=== PATIENT | female | born 1970 | race Caucasian/White ===

== ENCOUNTER → 2017-11-22 | Outpatient (CLI) | payer OTHER ==
--- NOTE | 2017-11-23 13:47 | MM ---
Reason for exam: screening (asymptomatic). Last mammogram was performed 1 year and 5 months ago. History: Implants in both breasts, 1995. Physical Findings: A clinical breast exam by your physician is recommended on an annual basis and results should be correlated with mammographic findings. MG Screening Mammo Implant/CAD Bilateral CC, MLO, and ID view(s) were taken. Prior study comparison: June 29, 2016, bilateral MG screening mammo implant/CAD. The breast tissue is heterogeneously dense. This may lower the sensitivity of mammography. Finding: There are typically benign overall stable punctate calcifications. No suspicious abnormality. No significant changes in finding since June 29, 2016. ASSESSMENT: Benign, BI-RAD 2 RECOMMENDATION: Routine screening mammogram of both breasts in 1 year.
== END | disposition home or self-care (01) ==
LOC: RADMAMWWP 12:57
PROVIDERS: ATTEND Family Medicine
DX: Z12.31 Encounter for screening mammogram for malignant neoplasm of breast (principal)
CPT/HCPCS: 77067

== ENCOUNTER → 2020-12-19 | Outpatient (CLI) | payer OTHER ==
--- NOTE | 2020-12-20 14:51 | MM ---
Reason for exam: screening (asymptomatic). Last mammogram was performed 3 years and 1 month ago. History: Implants in both breasts, 1995. Physical Findings: A clinical breast exam by your physician is recommended on an annual basis and results should be correlated with mammographic findings. MG 3D Screen Mammo Imp/Cad Bilateral CC and MLO view(s) were taken. Prior study comparison: November 22, 2017, bilateral MG screening mammo implant/CAD. June 29, 2016, bilateral MG screening mammo implant/CAD. Finding: Architectural distortion located 4-5cm from the nipple in the 12 o'clock position of the left breast. New finding since November 22, 2017 and June 29, 2016. ASSESSMENT: Incomplete: need additional imaging evaluation, BI-RAD 0 RECOMMENDATION: Ultrasound of the left breast. [facility] will attempt to contact patient to return for ultrasound.
== END | disposition home or self-care (01) ==
LOC: RADMAMWWP 13:29
PROVIDERS: ATTEND Family Medicine
DX: Z12.31 Encounter for screening mammogram for malignant neoplasm of breast (principal)
CPT/HCPCS: 77063; 77067

== ENCOUNTER → 2020-12-30 | Outpatient (CLI) | payer OTHER ==
--- NOTE | 2020-12-31 09:14 | USB ---
Reason for exam: additional evaluation requested from abnormal screening. History: Implants in both breasts, 1995. Physical Findings: Nurse Summary: 2cm firm nodule at 2-3 o'clock (nurse dw). US Breast Limited BILAT Technologist: Nathalie Sykes Left limited breast ultrasound including focal area of concern, retroareolar and axilla demonstrates a 0.6 x 1.0 x 0.5cm hypoechoic lesion at 11 o'clock. Suspicious, appears to correspond to mammogram. Right complete breast ultrasound includes all four quadrants, the retroareolar region and axilla. Finding demonstrates lump at 3 o'clock, likely fold breast implant, no cyst or mass. These results were verbally communicated with the patient and result sheet given to the patient on 12/30/20. ASSESSMENT: Suspicious, BI-RAD 4 RECOMMENDATION: Ultrasound core biopsy of the left breast. Called Dr. Lee's office with mammographic findings and has scheduled an appointment for the patient for 01/29/21 at 9:[address] Lerma. Biopsy scheduled for 01/23/21 at 9:30. PRELIMINARY REPORT CALLED AND FAXED TO DR. LERMA ON 12/31/20.
== END | disposition home or self-care (01) ==
LOC: RADUSWWP 13:03
PROVIDERS: ATTEND Family Medicine
DX: N64.59 Other signs and symptoms in breast (principal)

== ENCOUNTER → 2021-01-23 | Day surgery (SDC) | payer OTHER ==
[2021-01-23 09:37] VITALS: RESP 16
[2021-01-23 10:57] VITALS: BP 127/86; PULSE 76; TEMP 98
--- NOTE | 2021-01-23 13:00 | USB ---
EXAMINATION TYPE: US biopsy breast VAD LT DATE OF EXAM: 01/23/2021 CLINICAL HISTORY: R92.8 abnormal mammogram. TECHNIQUE: Ultrasound guided core biopsy of left breast. COMPARISON: 12/30/2020, 12/19/2020 FINDINGS: The procedure of ultrasound guided core biopsy was explained to the patient. Benefits, alternatives, and risks were discussed. An informed consent was then obtained. The patient was placed in supine positioning for imaging and for the procedure. The overlying skin was prepped and draped in usual sterile fashion. Lidocaine buffered with bicarbonate was used as anesthetic into the skin and subcutaneous tissue up to area of concern in the left breast. A alber was made with surgical scalpel. Under ultrasound guidance, a 12-gauge vacuum assisted biopsy gun device was used to obtain 5 core samples. Following this, a biopsy clip was left in lesion. The patient tolerated the procedure well without any immediate complication. The patient was kept in the radiology department for short stay after the procedure and then discharged home in stable condition. IMPRESSION: Successful, uncomplicated ultrasound guided core biopsy of area of concern in the left breast, full pathology results to follow. Pathology Results: Benign LEFT BREAST, 11:00 POSITION, CORE BIOPSY: Hyalinized and sclerotic hypocellular breast tissue with mild periductal chronic inflammation. Recommendation Surgical consult of the left breast. FERNANDA
--- NOTE | 2021-01-23 14:46 | MM ---
Reason for exam: additional evaluation requested from abnormal screening. Last mammogram was performed 1 month ago. History: Implants in both breasts, 1995. MG Diagnostic Mammo LT Wo CAD CC and LM view(s) were taken of the left breast. Prior study comparison: December 19, 2020, bilateral MG 3d screen mammo imp/cad. November 22, 2017, bilateral MG screening mammo implant/CAD. ASSESSMENT: Post procedure mammogram for marker placement RECOMMENDATION: Ultrasound of the left breast in 6 months. PENDING PATHOLOGY RESULTS.
== END ==
LOC: RADUSWWP 09:12
PROVIDERS: ATTEND Student in an Organized Health Care Education/Training Program
DX: N61.0 Mastitis without abscess (principal)
CPT/HCPCS: 88305; 77065; 19083; A4648; J2001

== ENCOUNTER → 2022-05-01 | Outpatient (CLI) | payer OTHER ==
--- NOTE | 2022-05-01 13:35 | MM ---
Reason for Exam: Follow-up at short interval from prior study. Last mammogram was performed 1 year(s) and 4 month(s) ago. Patient History: Menarche at age 13. 01/23/2021, Benign Core Biopsy on the left side. 1995, Bilateral Implants. Last menstrual period: 04/23/2022 Risk Values: Essence 5 year model risk: 0.8%. NCI Lifetime model risk: 6.7%. Prior Study Comparison: 06/29/2016 Bilateral Screening Mammogram, [facility]. 11/22/2017 Bilateral Screening Mammogram, [facility]. 12/19/2020 Bilateral Screening Mammogram, [facility]. 12/30/2020 Bilateral Diagnostic Ultrasound, [facility]. 01/23/2021 Left Diagnostic Mammogram, [facility]. Tissue Density: The breast tissue is heterogeneously dense. This may lower the sensitivity of mammography. Findings: Analyzed By CAD. There is again aqueduct is distortion about the lower centimeters from the nipple at 12:00 position in the left breast with biopsy clip in place. Biopsy demonstrated benign pathology which was discordant from previous ultrasound findings. This is not significantly changed from prior exam. No new suspicious masses or worrisome cluster microcalcifications. Bilateral saline implant rupture. Overall Assessment: Incomplete: need additional imaging evaluation, BI-RAD 0 Management: Diagnostic Breast Ultrasound of the left breast. A clinical breast exam by your physician is recommended on an annual basis and results should be correlated with mammographic findings. This exam should not preclude additional follow-up of suspicious palpable abnormalities. Results were given to the patient verbally at the time of exam. Electronically signed and approved by: Ernesto Foy D.O.
--- NOTE | 2022-05-01 14:23 | USB ---
Reason for Exam: Follow-up at short interval from prior study. Patient History: Menarche at age 13. 01/23/2021, Benign Core Biopsy on the left side. 1995, Bilateral Implants. Risk Values: Essence 5 year model risk: 0.8%. NCI Lifetime model risk: 6.7%. Technique: Method: Targeted. Prior Study Comparison: 11/22/2017 Bilateral Screening Mammogram, [facility]. 12/19/2020 Bilateral Screening Mammogram, [facility]. 01/23/2021 Left Diagnostic Mammogram, [facility]. Findings: The upper inner quadrant of the left breast and the retroareolar of the left breast were scanned. Limited ultrasound of the left breast at site of previous biopsy was performed from 9:00 to 2:00. The retroareolar region was evaluated. The axilla was not evaluated. Stable to marginally increase in size of 1.1 x 1.0 x 0.8 cm hypoechoic lesion at 11:00 2 cm from the nipple with spiculated margins and biopsy clip in place. Previous biopsy results demonstrated hyalinizing sclerotic hypercellular breast tissue with mild periductal chronic inflammation which is discordant with imaging findings. Overall Assessment: Suspicious, BI-RAD 4 Management: Surgical Consultation of the left breast. A clinical breast exam by your physician is recommended on an annual basis and results should be correlated with mammographic findings. Electronically signed and approved by: Ernesto Foy D.O.
== END | disposition home or self-care (01) ==
LOC: RADMAMWWP 12:48
PROVIDERS: ATTEND Family Medicine
DX: R92.8 Other abnormal and inconclusive findings on diagnostic imaging of breast (principal)
CPT/HCPCS: 77066; 76642; G0279; 77062

== ENCOUNTER → 2022-09-11 | Outpatient (CLI) | payer OTHER ==
[2022-09-11 14:48] VITALS: BP 110/70; PULSE 85; RESP 17; TEMP 98
--- NOTE | 2022-09-11 15:14 | P.GSHP ---
History of Present Illness H&P Date: 09/11/22 Chief Complaint: Discordant left breast ultrasound core biopsy Adele is a 52-year-old female seen in consultation for Dr. Lee who underwent a bilateral mammogram on . This revealed heterogeneously dense breast tissue. Was personally reviewed and additionally it was noted that she had implants in place which appeared to be deflated. She then had an ultrasound of the left breast which revealed a 1.1 x 0.8 cm hypoechoic lesion at the 11 o'clock position with spiculated margins. A biopsy clip was in place. It was felt that the biopsy results were discordant as this was a suspicious lesion in that needle localization and excision should be performed. She has not had any studies done since April. She states she can feel a valve in the right breast as she has had prior implants in both of the implants have ruptured. This mammogram was a routine mammogram. She had bilateral breast reduction followed by breast implant placement. The implants were placed approximately 30 years ago. The are saline implants. Caffiene: 1 cup every other day nicotine: several times a week chocolate: occasional BCP: none Hormonal History: menarche: 15 , breast fed: yes, age at : 19 periomenopausal at this time, LMP 1 month ago hormones: none Family History: brother: skin cancer ? type Surgical history: Bilateral breast reduction followed by breast implant placement appy Medical History: none Social History: nicotine: Several times a week Alcohol: weekends, 5 drinks; wine or vodka drugs: none - Constitutional Constitutional: Reports sweats - EENT Eyes: left blurred vision (light flashing in her left eye), denies pain Ears: deny: decreased hearing, tinnitus Ears, nose, mouth and throat: Reports headache - Breasts Breasts: bilateral: as per HPI - Cardiovascular Cardiovascular: Denies chest pain, Denies shortness of breath - Respiratory Respiratory: Denies cough, Denies 7 - Gastrointestinal Gastrointestinal: Reports constipation, Denies abdominal pain, Denies diarrhea, Denies nausea, Denies vomiting - Genitourinary (Female) Genitourinary: Denies dysuria, Denies hematuria - Menstruation Menstruation: Reports cycle variable - Musculoskeletal Musculoskeletal: Denies myalgias - Integumentary Integumentary: Denies pruritus, Denies rash - Neurological Neurological: Denies numbness, Denies weakness - Psychiatric Psychiatric: Reports depression, Denies anxiety - Endocrine Endocrine: Denies fatigue, Denies weight change - Hematologic/Lymphatic Comment: none - Allergic/Immunologic Allergic/Immunologic: Reports seasonal allergies Past Medical History Past Medical History: No Reported History History of Any Multi-Drug Resistant Organisms: None Reported Past Surgical History: Appendectomy, Breast Surgery Additional Past Surgical History / Comment(s): breast reduction, breast augmentation. Repair of fractured nose as child Past Anesthesia/Blood Transfusion Reactions: No Reported Reaction Past Psychological History: No Psychological Hx Reported Smoking Status: Current every day smoker Past Alcohol Use History: Occasional Past Drug Use History: None Reported Medications and Allergies Home Medications Medication Instructions Recorded Confirmed Type No Known Home Medications 09/11/22 09/11/22 History Allergies Allergy/AdvReac Type Severity Reaction Status Date / Time No Known Allergies Allergy Verified 09/11/22 14:44 Surgical - Exam Vital Signs Temp Pulse Resp BP Pulse Ox 98 F 85 17 110/70 98 09/11/22 14:45 09/11/22 14:45 09/11/22 14:45 09/11/22 14:45 09/11/22 14:45 BMKI: 19 - General moderate distress - Eyes normal ocular movement - ENT no hearing loss - Neck trachea midline - Respiratory normal respiratory effort, clear to auscultation - Cardiovascular Rhythm: regular Heart Sounds: normal: S1, S2 - Abdomen Abdomen: soft, non tender, no guarding, no rigid, no rebound - Integumentary normal turgor - Neurologic no disoriented, no combative - Musculoskeletal normal gait, normal posture - Psychiatric oriented to time, oriented to person, oriented to place, speech is normal, memory intact Breast Exam: BRA: 36D Inspection: Well-healed scars from prior reduction mammoplasty, patient has a visible right breast implant change in the upper medial aspect of the breast Palpation: Right breast: Multiple positional exam implant is palpable in the upper medial aspect of the breast, fibrocystic changes, otherwise no dominant masses or nodules of concern Right axilla: No adenopathy of concern Left breast: Multi-positional exam fibrocystic changes no discrete dominant masses or nodules of concern is harder to feel the deflated implant on that side Left axilla: No adenopathy of concern Results Mammogram and ultrasound personally reviewed Assessment and Plan Assessment: Impression: Discordant left breast core biopsy Bilateral deflated breast implants causing breast pain Plan: Needle localization at excisional lumpectomy of discordant lesion in the left breast Bilateral removal of deflated implants/removal of capsule of implants Cc: Dr. Lee
== END ==
LOC: WWCWWP 14:29
PROVIDERS: ATTEND Surgery
DX: N63.20 Unspecified lump in the left breast, unspecified quadrant (principal); F17.200 Nicotine dependence, unspecified, uncomplicated

== ENCOUNTER → 2022-10-27 | Day surgery (SDC) | payer OTHER ==
[~2022-10-27] MED LIST: HEPARIN SODIUM,PORCINE/PF 5,000 UNIT/0.5 ML SYRINGE SQ PRN; HYDROmorphone 0.5 MG/0.5 ML SYRINGE IVP PRN; LACTATED RINGERS 1,000 ML IV SCH; ONDANSETRON 4 MG/2 ML VIAL IVP ONE; Pre Op ABX Message 1 EACH MISC MISCELLANE ONE; fentaNYL (PF) 50 MCG/ML 2 ML AMP IV PRN
--- NOTE | 2022-10-27 10:47 | P.PN ---
Progress Note - Text Progress Note Date: 10/27/22 The patient came late to her appointment and her surgical case was canceled. She still requires needle localization excision of lesion of concern in the left breast. She would also like to have the bilateral ruptured implants removed. I have talked to Dr. Gutierrez and he has agreed to do a co-procedure in which I will remove the lesion of concern in the breast and he will removed both implants. We have talked to his office and this is scheduled for December 15. The patient is also aware. She is going to call Dr. Gutierrez's office and schedule an appointment with him. Surgery today was canceled because she came late, and other cases were moved into her appointment OR time.
== END ==
LOC: OR 08:23
PROVIDERS: ATTEND Surgery
DX: Z53.9 Procedure and treatment not carried out, unspecified reason (principal)

== ENCOUNTER → 2022-11-27 | Outpatient (CLI) | payer OTHER ==
[2022-11-27 08:49] VITALS: BP 116/83; PULSE 104; RESP 17; TEMP 97.9
--- NOTE | 2022-11-27 08:53 | P.PN ---
Subjective Progress Note Date: 11/27/22 Principal diagnosis: Discordant mass left breast/bilateral breast implants deflated Subjective Progress Note Date: 10/15/22 Principal diagnosis: Discordant mass left breast/bilateral breast implants deflated Chief Complaint: Discordant left breast ultrasound core biopsy Adele is a 52-year-old female seen in consultation for Dr. Lee who underwent a bilateral mammogram on . This revealed heterogeneously dense breast tissue. Was personally reviewed and additionally it was noted that she had implants in place which appeared to be deflated. She then had an ultrasound of the left breast which revealed a 1.1 x 0.8 cm hypoechoic lesion at the 11 o'clock position with spiculated margins. A biopsy clip was in place. It was felt that the biopsy results were discordant as this was a suspicious lesion in that needle localization and excision should be performed. She has not had any studies done since April. She states she can feel a valve in the right [address] as she has had prior implants and both of the implants have ruptured. This mammogram was a routine mammogram. She had bilateral breast reduction followed by breast implant placement. The implants were placed approximately 30 years ago. The are saline implants. They were textured implants. The patient had repeat left breast mammogram and ultrasound on 2922. The area of concern which has been biopsied was felt to be discordant. The patient during her prior visit expressed a concern that her implants may have been recalled and that she had contacted an energy attorney's office. I had sierra foster in my tufting supervisor Jaja Stephens to hear the patient's concerns. We discussed with her that we would treat her medically per our existing practice. The implants will be sent to pathology, not available from the operating room for her to take home. She expressed understanding of this and wish for us to proceed with her medical care. On the date that she was scheduled for surgical resection she came late to the hospital. Her procedure was therefore canceled. At that point I strongly encouraged her to see a plastic surgeon which she did. Therefore the case will be needle localization of the discordant lesion in the left breast to be resected and the implants to be resected by plastic surgery. Caffiene: 1 cup every other day nicotine: several times a week chocolate: occasional BCP: none Hormonal History: menarche: 15 , breast fed: yes, age at : 19 periomenopausal at this time, LMP 1 month ago hormones: none Family History: brother: skin cancer ? type Surgical history: Bilateral breast reduction followed by breast implant placement appy Medical History: none Social History: nicotine: Several times a week Alcohol: weekends, 5 drinks; wine or vodka drugs: none - Constitutional Constitutional: Reports sweats - EENT Eyes: left blurred vision (light flashing in her left eye), denies pain Ears: deny: decreased hearing, tinnitus Ears, nose, mouth and throat: Reports headache - Breasts Breasts: bilateral: as per HPI - Cardiovascular Cardiovascular: Denies chest pain, Denies shortness of breath - Respiratory Respiratory: Denies cough - Gastrointestinal Gastrointestinal: Reports constipation, Denies abdominal pain, Denies diarrhea, Denies nausea, Denies vomiting - Genitourinary (Female) Genitourinary: Denies dysuria, Denies hematuria - Menstruation Menstruation: Reports cycle variable - Musculoskeletal Musculoskeletal: Denies myalgias - Integumentary Integumentary: Denies pruritus, Denies rash - Neurological Neurological: Denies numbness, Denies weakness - Psychiatric Psychiatric: Reports depression, Denies anxiety - Endocrine Endocrine: Denies fatigue, Denies weight change - Hematologic/Lymphatic Comment: none - Allergic/Immunologic Allergic/Immunologic: Reports seasonal allergies Past Medical History Past Medical History: No Reported History History of Any Multi-Drug Resistant Organisms: None Reported Past Surgical History: Appendectomy, Breast Surgery Additional Past Surgical History / Comment(s): breast reduction, breast augmentation. Repair of fractured nose as child Past Anesthesia/Blood Transfusion Reactions: No Reported Reaction Past Psychological History: No Psychological Hx Reported Smoking Status: Current every day smoker Past Alcohol Use History: Occasional Past Drug Use History: None Reported Medications and Allergies Home Medications Medication Instructions Recorded Confirmed Type No Known Home Medications 09/11/22 09/11/22 History Allergies Allergy/AdvReac Type Severity Reaction Status Date / Time No Known Allergies Allergy Verified 09/11/22 14:44 Objective - Constitutional General appearance: Present: cooperative - EENT Eyes: Present: EOMI ENT: Present: hearing grossly normal - Neck Neck: Present: normal ROM - Respiratory Respiratory: bilateral: CTA - Cardiovascular Rhythm: regular Heart sounds: normal: S1, S2 - Gastrointestinal General gastrointestinal: Present: soft - Integumentary Integumentary: Present: normal turgor - Musculoskeletal Musculoskeletal: Present: gait normal - Psychiatric Psychiatric: Present: A&O x's 3, appropriate affect, intact judgment & insight - Additional findings Additional findings: Breast Exam: BRA: 36D Inspection: Well-healed scars from prior reduction mammoplasty, patient has a visible right breast implant change in the upper medial aspect of the breast Palpation: Right breast: Multiple positional exam implant is palpable in the upper medial aspect of the breast, fibrocystic changes, otherwise no dominant masses or nodul es of concern Right axilla: No adenopathy of concern Left breast: Multi-positional exam fibrocystic changes no discrete dominant masses or nodules of concern is harder to feel the deflated implant on that side Left axilla: No adenopathy of concern Assessment and Plan Assessment: Impression: Discordant left breast core biopsy Bilateral deflated breast implants causing breast pain Plan: ultrasound guided left breast Needle localization excisional lumpectomy of discordant lesion in the left breast Bilateral removal of deflated implants/removal of capsule of implants bilateral The implants are going to be removed by Dr. Gutierrez from plastic surgery. Risk and benefits of the procedure been discussed with the patient. Risks include but are not limited to bleeding, infection, reaction to the anesthetic. She may have some decreased sensation to the breast. If the lesion on needle localized were to be not removed it is possible additional tissue could have to be removed. She understands her breast size may be smaller. She understands and wishes to proceed. She is instructed to stop smoking prior to her procedure. She is instructed not to use any aspirin or aspirin products prior to the procedure 2 weeks. She understands and is in agreement. Cc: Dr. Lee
== END ==
LOC: WWCWWP 08:20
PROVIDERS: ATTEND Surgery
DX: N64.4 Mastodynia (principal); T85.49XA Other mechanical complication of breast prosthesis and implant, initial encounter; F17.200 Nicotine dependence, unspecified, uncomplicated; T85.41XA Breakdown (mechanical) of breast prosthesis and implant, initial encounter; Z90.49 Acquired absence of other specified parts of digestive tract

== ENCOUNTER → 2022-12-14 | Outpatient (CLI) | payer OTHER | END | disposition home or self-care (01) | LOC: LABWHC1 11:31 | PROVIDERS: ATTEND Family Medicine | DX: Z01.818 Encounter for other preprocedural examination (principal) | CPT/HCPCS: 36415; 93005 ==

== ENCOUNTER 2022-12-15 10:23 | Day surgery (SDC) | payer OTHER ==
[2022-12-14 09:05] VITALS: BMI 18.6
[~2022-12-15 10:23] MED LIST changes: +DEXAMETHASONE SOD PHOSPHATE 4 MG/ML 1 ML VIAL IV ONE; -HYDROmorphone 0.5 MG/0.5 ML SYRINGE IVP PRN; +LIDOCAINE 1% (10MG/ML) FOR IV START INTRADERMA PRN; +MIDAZOLAM 2 MG/2 ML VIAL IV PRN; -fentaNYL (PF) 50 MCG/ML 2 ML AMP IV PRN
[2022-12-15] MEDS ORDERED: ALPRAZolam 0.5 MG TAB ONE (11:54)
[2022-12-15] MEDS ORDERED: ALPRAZolam 0.5 MG TAB PO ONE (11:56)
[2022-12-15] MEDS ORDERED: LIDOCAINE 1% (10MG/ML) FOR IV START SQ ONE (12:50)
[2022-12-15] MEDS ORDERED: SODIUM CHLORIDE 0.9% 100 ML with ceFAZolin 2,000 MG IV ONE ×2 (14:32)
[2022-12-15] MEDS ORDERED: fentaNYL (PF) 50 MCG/ML 2 ML AMP ONE (14:32)
[2022-12-15] MEDS ORDERED: SUCCINYLCHOLINE CHLORIDE 200 MG/10 ML VIAL IV ONE (14:32)
[2022-12-15] MEDS ORDERED: MIDAZOLAM 2 MG/2 ML VIAL ONE (14:32)
[2022-12-15] MEDS ORDERED: LIDOCAINE 2% INJ 20 MG/ML (2 ML VIAL) ONE (14:32)
[2022-12-15] MEDS ORDERED: HYDROmorphone (PF) 1 MG/ML ONE (14:32)
[2022-12-15] MEDS ORDERED: PROPOFOL 10 MG/ML 20 ML VIAL IV ONE (14:32)
[2022-12-15] MEDS ORDERED: LACTATED RINGERS 1,000 ML IV ONE (15:49)
--- NOTE | 2022-12-15 15:57 | P.OP ---
Date of Procedure: 12/15/22 Preoperative Diagnosis: Bilateral ruptured implants, radiographic abnormality left breast Postoperative Diagnosis: Same Procedure(s) Performed: Bilateral implant removal by Dr. Gutierrez, needle localization excisional lumpectomy left breast with Dr. Calvert Anesthesia: JOYA Crushing Foreman #1: Sharmaine Charles Estimated Blood Loss (ml): 30 IV fluids (ml): 600 Pathology: other (Breast tissue) Condition: stable Disposition: same day Indications for Procedure: Radiographic abnormality left breast core biopsy discordant Operative Findings: Dense breast tissue Description of Procedure: The patient had bilateral implant ruptures and these were removed by plastic surgery. She also had a radiographic abnormality in the left breast which was removed by Dr. Calvert. She was seen first in the radiology Department and localization of the area of concern was performed. She then was taken to the surgical suite and both breasts were prepped and draped in a sterile fashion. An inferior breast incision was made in the left breast and the implant was removed. Through this incision dissection was performed up to the shaft of the needle. This was removed from the skin and the needle was followed inferiorly to its tip. Surrounding tissue was excised. The specimen was painted for orientation. Radiograph of the specimen revealed that the area of concern had been removed. The clip was in the specimen. After we were assured that hemostasis was attained Surgicel in powder form was placed. The deep tissues were closed using 3-0 Vicryl suture. This is followed by subcutaneous 4-0 Monocryl. A proline suture was then placed in the subcuticular tissue. The patient tolerated procedure in stable condition. All instrument and sponge counts were correct at the end of the case.
[2022-12-15] MEDS ORDERED: HYDROcodone/APAP 5-325MG 1 EACH TAB PO ONE ×2 (16:03→17:03)
[2022-12-15] MEDS ORDERED: ONDANSETRON 4 MG/2 ML VIAL IVP ONE ×2 (16:03→17:01)
[2022-12-15 16:16] VITALS: RESP 16; TEMP 97
[2022-12-15] MEDS: HYDROmorphone 0.5 MG/0.5 ML SYRINGE IVP PRN ×2 (16:30→16:45)
[2022-12-15] MEDS ORDERED: HYDROcodone/APAP 5-325MG 1 EACH TAB ONE (17:06)
[2022-12-15] MEDS ORDERED: ONDANSETRON 4 MG/2 ML VIAL ONE (17:06)
[2022-12-15] MEDS ORDERED: droPERidol 5 MG/2 ML VIAL IVP ONE (17:22)
[2022-12-15 17:33] VITALS: BP 143/74; PULSE 77
--- NOTE | 2022-12-15 22:59 | OP ---
OPERATIVE REPORT DATE OF SERVICE : 12/15/2022 PREOPERATIVE DIAGNOSES: 1. Ruptured bilateral saline breast implants. 2. Bilateral capsular contracture. POSTOPERATIVE DIAGNOSES: 1. Ruptured bilateral saline breast implants. 2. Bilateral capsular contracture. PROCEDURES PERFORMED: 1. Removal of left breast ruptured implant. 2. Removed right breast ruptured implant with partial capsulectomy. INDICATIONS FOR PROCEDURE: The patient is a 52-year-old who was found to have a suspicious lesion in the left breast on mammogram. The patient is known to have a ruptured saline implant. The patient underwent a breast reduction procedure and placement of implant in 1995. The implants have been ruptured for sometime. She is referred to my care due to the ruptured saline implant. Physical exam demonstrates ruptured implant with former scar tissue on the right and left, but no significant abnormalities at the patient's breast tissue, otherwise soft except for the area of scarring. I counseled the patient to undergo removal of the implants with capsule if necessary for this problem. She is aware of potential risks and complications including, but not limited to hematoma, seroma, wound healing problems, among others. She has requested to perform the surgery and coordinate with Dr. Charles who will remove suspicious left breast tissue lesion. DESCRIPTION OF PROCEDURE: The patient was seen in the preoperative area after she was transported there from [facility]. The procedure was reviewed. All questions were answered. Markings were placed. The patient was then transported to the operating room, where she was placed in supine position. Following induction of general endotracheal anesthesia, the patient was prepped and draped in usual fashion. I proceeded with the removal of the left breast ruptured implant first. The patient's lateral inferior chaudhary pattern reduction scar was present and marked with a skin marker. Incision was made dividing skin in full-thickness fashion followed by cauterization of both subcutaneous tissue and the breast parenchyma until identifying the breast implant capsule. The capsular structure was thin and soft and this area divided with cautery. The implant was present with a small amount of serous fluid that was clear. The ruptured implant was removed and sent to pathology. The cavity was irrigated. There was no significant bleeding. Dr. Charles and her team proceeded with excision of the breast lesion that was needle localized, through this opening, dictated on a separate note. I proceeded to the right side again identifying the lateral lower aspect of the Chaudhary pattern incision from prior reduction, which was marked preoperatively. Incision was made in this area with a 10 blade scalpel dividing skin in full-thickness fashion followed by cauterization to divide subcutaneous tissue and breast parenchyma. The patient's capsule on the right side was firmer and the area is hard, although appeared healthy. The capsule was isolated from surrounding tissue. This portion of the hard capsule was removed with the patient's ruptured right breast implant. The capsular tissue was sent separate from the implant. The implant was completely removed. The remaining portion of the capsule that was present appeared soft and firm as it was in this other area. This cavity was now irrigated. Hemostasis was maintained with cautery. The incision was closed approximating the breast parenchyma with interrupted 3-0 Vicryl and the deep dermis using inverted interrupted 4-0 Monocryl and the closure of superficial dermis and epidermis with subcuticular of 3-0 Prolene. The closure of the right side was performed in the same fashion using sutures. The surgical enrique cleansed with saline and dried, and postoperative bandages were placed using half-inch Steri-Strips, Kerlix squares, secured with 3 Medipore tape, a size 3 white mammary support. The patient was then awakened from her anesthetic and transferred to recovery room in good condition with stable vital signs. ESTIMATED BLOOD LOSS: For this procedure is 15 mL. COMPLICATIONS: There were no complications. MMODL / IJN: [id number] /
--- NOTE | 2022-12-21 07:29 | USB ---
EXAM: US breast localization LT DATE OF EXAM: 12/15/2022 COMPARISON: 01/23/2021 Left Diagnostic Mammogram, [facility]. 05/01/2022 Bilateral MG 3D diag mammo w/cad GIRISH , [facility]. 09/17/2022 Left MG 3D diag mammo imp w/cad LT, [facility]. DESCRIPTION: The needle localization procedure with wire placement for surgical excision was explained to the sonam ent. Benefits, alternatives, and risks were discussed. Preprocedure planning was discussed with the surgeon and the patient for coordination of wire placement. Wire was placed for best possible positi oning for planned surgery. An informed consent was then obtained. A timeout was performed. The overlying skin was prepped in usual sterile fashion. Lidocaine was used as anesthetic into the s kin and subcutaneous tissue up to the level of area of concern. A 7 cm needle was used. It was plac ed using a superior approach under ultrasound guidance. The wire was placed and the needle was withdr awn. Mammographic imaging was performed for wire documentation. The wire was fixed to patient's skin . The patient tolerated the procedure well without any immediate complication. The patient was kept in the radiology department for short stay after the procedure and then taken to surgery for surgical e xcision. Specimen: Biopsy marker and wire are identified in specimen mammogram. Impression: 1. Successful needle localization with wire placement and surgical excision of biopsy marker and ultr asound abnormality.
== END 2022-12-15 18:10 | disposition home or self-care (01) ==
LOC: OR 10:23
PROVIDERS: ATTEND Surgery
DX: N65.0 Deformity of reconstructed breast (principal); F17.200 Nicotine dependence, unspecified, uncomplicated; F10.20 Alcohol dependence, uncomplicated; Z79.899 Other long term (current) drug therapy
CPT/HCPCS: 19301; 81025; 77065; 76098; 76999; C1819; J2250; J0330; J1100; J2405; J0690; J3010; J1170 ×2; J2704; J1790; J1644; J2001; 88300; 88305; 88307; 88341; 88342

== ENCOUNTER → 2022-12-24 | Outpatient (CLI) | payer OTHER ==
[2022-12-24 14:51] VITALS: BP 115/73; PULSE 113; RESP 18; TEMP 97.9
--- NOTE | 2022-12-24 14:55 | P.PN ---
Progress Note - Text Progress Note Date: 12/24/22 The patient is status post bilateral implant removal and needle localization and excisional lumpectomy of lesion of concern in the left breast of 5923. 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 The patient tolerated the procedure without difficulty. Physical examination: Lungs: Clear Heart: Regular rate and rhythm Incisions: Clean and dry Impression/Plan: Patient doing well postoperatively Follow-up plastic surgery Follow up here in 6 months with bilateral mammogram We have discussed the fact that the patient has ALH/LCIS and is at increased risk to develop breast cancer. She is going to follow up with medical oncology to discuss chemoprevention CC: Dr. Lee
== END ==
LOC: WWCWWP 14:41
PROVIDERS: ATTEND Surgery
DX: Z85.3 Personal history of malignant neoplasm of breast (principal)

== ENCOUNTER 2023-07-16 14:37 | Emergency (ER) | payer OTHER ==
[2023-07-16] MEDS ORDERED: KETOROLAC 15 MG/ML 1 ML VIAL IM STA (15:33)
--- NOTE | 2023-07-16 16:25 | ED ---
Lower Extremity Injury HPI - General Chief Complaint: Extremity Injury, Lower Stated Complaint: fall-R knee injury Time Seen by Provider: 07/16/23 15:27 Source: patient, RN notes reviewed Mode of arrival: wheelchair Limitations: no limitations - History of Present Illness Initial Comments: Patient is a 53-year-old female presented ER with chief complaint of right knee injury. Patient states her 100 pound dog ran into the medial side of her knee on 07/14/23. Patient states since then she has not been able to walk and his unable to bear weight. She reports she has been icing her knee with slight relief. Patient does state that she is able to fully bend her knee but is extremely painful. Patient denies any other injuries. - Related Data Previous Rx's Medication Instructions Recorded HYDROcodone/APAP 5-325MG [[place] 5] 1 - 2 each PO Q4H PRN #20 tab 12/15/22 Allergies Allergy/AdvReac Type Severity Reaction Status Date / Time No Known Allergies Allergy Verified 12/24/22 14:51 Review of Systems ROS Statement: Those systems with pertinent positive or pertinent negative responses have been documented in the HPI. ROS Other: All systems not noted in ROS Statement are negative. Past Medical History Past Medical History: No Reported History Additional Past Medical History / Comment(s): RUPTURED BREAST IMPLANTS. MASS ON LEFT BREAST History of Any Multi-Drug Resistant Organisms: None Reported Past Surgical History: Appendectomy, Breast Surgery Additional Past Surgical History / Comment(s): breast reduction, breast augmentation. Repair of fractured nose as child Past Anesthesia/Blood Transfusion Reactions: No Reported Reaction Past Psychological History: No Psychological Hx Reported Smoking Status: Former smoker Past Alcohol Use History: None Reported Past Drug Use History: None Reported - Past Family History Mother Family Medical History: No Reported History General Exam Limitations: no limitations General appearance: alert, in no apparent distress Respiratory exam: Present: normal lung sounds bilaterally. Absent: respiratory distress, wheezes, rales, rhonchi, stridor Cardiovascular Exam: Present: regular rate, normal rhythm, normal heart sounds. Absent: systolic murmur, diastolic murmur, rubs, gallop, clicks Extremities exam: Present: other (Right knee tenderness to medial joint line with mild edema. multiple contusions noted on right knee and left calf. 2+ right dorsalis pedis pulse. Full ROM) Neurological exam: Present: alert, oriented X3, CN II-XII intact Psychiatric exam: Present: normal affect, normal mood Course Vital Signs 07/16/23 14:53 Temperature 98 F Pulse Rate 86 Respiratory 20 Rate Blood Pressure 122/80 O2 Sat by Pulse 99 Oximetry Medical Decision Making - Medical Decision Making Was pt. sent in by a medical professional or institution (, [facility], [facility], urgent care, hospital, or custodial...) When possible be specific @ -No Did you speak to anyone other than the patient for history (EMS, parent, family, police, friend...)? What history was obtained from this source @ -No Did you review nursing and triage notes (agree or disagree)? Why? @ -I reviewed and agree with nursing and triage notes Were old charts reviewed (outside hosp., previous admission, EMS record, old EKG, old radiological studies, urgent care reports/EKG's, custodial records)? Report findings @ -No old charts were reviewed Differential Diagnosis (chest pain, altered mental status, abdominal pain women, abdominal pain men, vaginal bleeding, weakness, fever, dyspnea, syncope, headache, dizziness, GI bleed, back pain, seizure, CVA, palpatations, mental health, musculoskeletal)? @ -Differential Musculoskeletal: Muscular strain, contusion, ligament sprain, fracture, arthritis, septic arthritis, bursitis, cellulitis, muscle spasm, nerve compression, DVT, arterial occlusion, herpes zoster, electrolyte abnormality, tumor.... This is not meant to be in all inclusive list EKG interpreted by me (3pts min.). @ -None X-rays interpreted by me (1pt min.). @ -Right knee x-ray significant for subtle cortical irregularity along the anterior margin of the proximal tibia on the lateral view. Soft tissue swelling and small joint effusion is noted. CT interpreted by me (1pt min.). @ -None done U/S interpreted by me (1pt. min.). @ -None done What testing was considered but not performed or refused? (CT, X-rays, U/S, labs)? Why? @ -None What meds were considered but not given or refused? Why? @ -None Did you discuss the management of the patient with other professionals (professionals i.e. ALEXANDER Manzanares, [facility], lab, RT, psych nurse, executive secretary social welfare, immigration lawyer, teacher, education officer, casework supervisor)? Give summary @ -No Was smoking cessation discussed for >3mins.? @ -No Was critical care preformed (if so, how long)? @ -No Were there social determinants of health that impacted care today? How? (H omelessness, low income, unemployed, alcoholism, drug addiction, transportation, low edu. Level, literacy, decrease access to med. care, penitentiary, rehab)? @ -No Was there de-escalation of care discussed even if they declined (Discuss DNR or withdrawal of care, Hospice)? DNR status @ -No What co-morbidities impacted this encounter? (DM, HTN, Smoking, COPD, CAD, Cancer, CVA, ARF, Chemo, Hep., AIDS, mental health diagnosis, sleep apnea, morbid obesity)? @ -None Was patient admitted / discharged? Hospital course, mention meds given and route, prescriptions, significant lab abnormalities, going to OR and other pertinent info. @ -Discharge. Patient is a 53-year-old female presented ER chief complaint of right knee injury. On examination patient had 2+ right dorsalis pedis pulse, medial joint line tenderness with mild edema. Patient received IM Toradol for pain control. X-ray of the right knee was significant for subtle cortical irregularity along the anterior margin of the proximal tibia with lateral view. Soft tissue swelling as well as joint effusion is also noted. Patient will be placed in a knee immobilizer at discharge. Patient will be discharged with follow-up to orthopedics. I advised patient to take OTC tylenol and motrin for pain control. I discussed return parameters. Patient will be discharged in stable condition with follow-up to orthopedics. Patient expressed understanding and agreement with care plan. Undiagnosed new problem with uncertain prognosis? @ -No Drug Therapy requiring intensive monitoring for toxicity (Heparin, Nitro, Insulin, Cardizem)? @ -No Were any procedures done? @ -No Diagnosis/symptom? @ -Right knee injury Acute, or Chronic, or Acute on Chronic? @ -Acute Uncomplicated (without systemic symptoms) or Complicated (systemic symptoms)? @ -Uncomplicated Side effects of treatment? @ -No Exacerbation, Progression, or Severe Exacerbation? @ -No Poses a threat to life or bodily function? How? (Chest pain, USA, SC, pneumonia, PE, COPD, DKA, ARF, appy, cholecystitis, CVA, Diverticulitis, Homicidal, Suicidal, threat to staff... and all critical care pts) @ -No - Radiology Data Radiology results: report reviewed, image reviewed Disposition Clinical Impression: Right knee injury Disposition: HOME SELF-CARE Condition: Stable Additional Instructions: Please return to the Emergency Department if symptoms worsen or any other concerns. Please follow-up with orthopedics in the next 1-2 days. Is patient prescribed a controlled substance at d/c from ED?: No Referrals: Lenny Lee MD [Primary Care Provider] - 1-2 days Wilmer Farah MD [STAFF PHYSICIAN] - 1-2 days Time of Disposition: 16:42
--- NOTE | 2023-07-16 16:26 | XR ---
EXAMINATION TYPE: XR knee complete RT DATE OF EXAM: 07/16/2023 COMPARISON: NONE HISTORY: 53-year-old female with pain and injury after fall TECHNIQUE: 3 views FINDINGS: Anterior infrapatellar soft tissue swelling. Small knee joint effusion is also present. Possible subt le cortical irregularity along the anterior margin of the proximal tibia on the lateral view. IMPRESSION: Some subtle cortical irregularity along the anterior margin of the proximal tibia on the lateral view may be projectional. However, given the overlying soft tissue swelling and small joint effusion, livan ble to exclude a subtle nondisplaced fracture here. Correlate for point tenderness. No additional acu te osseous abnormality seen.
[2023-07-16 17:21] VITALS: BP 124/76; PULSE 8; RESP 18; TEMP 97.7
== END 2023-07-16 17:10 | disposition home or self-care (01) ==
LOC: EC 14:37
DX: S89.91XA Unspecified injury of right lower leg, initial encounter (principal); Z87.891 Personal history of nicotine dependence; W19.XXXA Unspecified fall, initial encounter
CPT/HCPCS: 73562; 99284; 96372; L1830; J1885

== ENCOUNTER → 2023-12-20 | Outpatient (CLI) | payer OTHER ==
--- NOTE | 2023-12-20 08:55 | MM ---
Reason for Exam: Additional evaluation requested from prior study. Last mammogram was performed 1 year(s) and 8 month(s) ago. Patient History: Menarche at age 13. First Full-Term at age 19. Postmenopausal. Patient has history of breast feeding. Previous Atypical Lobular Hyperplasia at age 52. 12/15/2022, Lumpectomy on the Left side. 12/15/2022, High risk US breast localization LT on the left side. 01/23/2021, Benign Core Biopsy on the left side. 12/15/2022, Bilateral Implant Removal. 1995, Bilateral Implants. Risk Values: Essence 5 year model risk: 2.7%. NCI Lifetime model risk: 18.8%. Prior Study Comparison: 06/29/2016 Bilateral Screening Mammogram, [facility]. 11/22/2017 Bilateral Screening Mammogram, [facility]. 12/19/2020 Bilateral Screening Mammogram, [facility]. 12/30/2020 Bilateral Diagnostic Ultrasound, [facility]. 01/23/2021 Left Diagnostic Mammogram, [facility]. 05/01/2022 Left US breast limited LT, [facility]. 05/01/2022 Bilateral MG 3D diag mammo w/cad GIRISH, [facility]. 09/17/2022 Left MG 3D diag mammo imp w/cad LT, [facility]. 09/17/2022 Left US breast limited LT, [facility]. 12/15/2022 Left MG diagnostic mammo LT wo CAD., [facility]. Tissue Density: The breasts are heterogeneously dense, which may obscure small masses. Findings: Analyzed By CAD. Post surgical change on both sides. New distortion central outer aspect of the left breast anterior to middle depth is new and corresponds to patient's recent excisional biopsy. There are faint calcifications laterally in the left breast. On magnification views, these appear punctate and are not quite grouped and can be reassessed at follow-up. Asymmetric density central posterior MLO view does not persist on additional views. Short interval follow-up recommended. Overall Assessment: Probably benign, BI-RAD 3 Management: Diagnostic Mammogram of the left breast in 6 months. Results were given to the patient verbally at the time of exam. Patient should continue monthly self-breast exams. A clinical breast exam by your physician is recommended on an annual basis. This exam should not preclude additional follow-up of suspicious palpable abnormalities. Note on Essence scores and lifetime risk: 1. A Essence score greater than 3% is considered moderate risk. If this is the case, consider specialist referral to assess eligibility for a risk reducing agent. 2. If overall lifetime risk for the development of breast cancer is 20% or higher, the patient may qualify for future screening with alternating mammogram and breast MRI. Electronically signed and approved by: Kathleen Dillon M.D. Radiologist
== END | disposition home or self-care (01) ==
LOC: RADMAMWWP 07:54
PROVIDERS: ATTEND Surgery
DX: R92.333 Mammographic heterogeneous density, bilateral breasts (principal); R92.1 Mammographic calcification found on diagnostic imaging of breast; Z85.3 Personal history of malignant neoplasm of breast; Z78.0 Asymptomatic menopausal state
CPT/HCPCS: 77066; G0279; 77062

== ENCOUNTER → 2023-12-23 | Outpatient (CLI) | payer OTHER ==
--- NOTE | 2023-12-23 15:05 | P.PN ---
Subjective Progress Note Date: 12/23/23 Principal diagnosis: LCIS Subjective Progress Note Date: 12-23-23 Principal diagnosis: Discordant mass left breast/bilateral breast implants deflated/removed and biopsied discordant lesion left breast /atypical lobular hyperplasia/LCIS left breast, bilateral implant removal 12-15-22 Adele is a 53-year-old female seen in consultation for Dr. Lee in 2022 who underwent a bilateral mammogram on . This revealed heterogeneously dense breast tissue. Was personally reviewed and additionally it was noted that she had implants in place which appeared to be deflated. She then had an ultrasound of the left breast which revealed a 1.1 x 0.8 cm hypoechoic lesion at the 11 o'clock position with spiculated margins. A biopsy clip was in place. It was felt that the biopsy results were discordant as this was a suspicious lesion in that needle localization and excision should be performed. She had bilateral breast reduction followed by breast implant placement. The implants were placed approximately 30 years ago. They are saline implants. They were textured implants. The patient had repeat left breast mammogram and ultrasound on 2922. The area of concern which has been biopsied was felt to be discordant. The patient during her prior visit expressed a concern that her implants may have been recalled and that she had contacted an patent prosecution attorney's office. I had called in my track subway repair supervisor Jaja Stephens to hear the patient's concerns. We discussed with her that we would treat her medically per our existing practice. The implants will be sent to pathology, not available from the operating room for her to take home. She expressed understanding of this and wish for us to proceed with her medical care. On the date that she was scheduled for surgical resection she came late to the hospital. Her procedure was therefore canceled. At that point I strongly encouraged her to see a plastic surgeon which she did. Therefore the case will be needle localization of the discordant lesion in the left breast to be resected and the implants to be resected by plastic surgery. The patient's surgery was on 12-15-22. Her pathology did reveal atypical lobular hyperplasia/LCIS of the left breast. The patient was seen by DR. Jesus Silva regarding chemoprophylaxis and chose to not use the tamoxifen at this time Bilateral mammogram 12-20-2023 benign BI-RADS 3 repeat left breast mammogram in 6 months secondary to some faint calcifications laterally on the left breast Note Dr. Jesus Mendiola reviewed from 02-22-2023, since that time the patient has opted not to use tamoxifen At this time the patient is not complaining of any new lumps masses or nodules of concern in either breast Caffiene: 1 cup every other day nicotine: several times a week chocolate: occasional BCP: none Hormonal History: menarche: 15 , breast fed: yes, age at : 19 periomenopausal at this time, LMP 1 month ago hormones: none Family History: brother: skin cancer ? type Surgical history: Bilateral breast reduction followed by breast implant placement appy bilateral implant removal/left breast biopsy Medical History: none Social History: nicotine: Several times a week Alcohol: weekends, 5 drinks; wine or vodka drugs: none - Constitutional Constitutional: Reports sweats - EENT Eyes: left blurred vision (light flashing in her left eye), denies pain Ears: deny: decreased hearing, tinnitus Ears, nose, mouth and throat: Reports headache - Breasts Breasts: bilateral: as per HPI - Cardiovascular Cardiovascular: Denies chest pain, Denies shortness of breath - Respiratory Respiratory: Denies cough - Gastrointestinal Gastrointestinal: Reports constipation, Denies abdominal pain, Denies diarrhea, Denies nausea, Denies vomiting - Genitourinary (Female) Genitourinary: Denies dysuria, Denies hematuria - Menstruation Menstruation: Reports cycle variable - Musculoskeletal Musculoskeletal: Denies myalgias - Integumentary Integumentary: Denies pruritus, Denies rash - Neurological Neurological: Denies numbness, Denies weakness - Psychiatric Psychiatric: Reports depression, Denies anxiety - Endocrine Endocrine: Denies fatigue, Denies weight change - Hematologic/Lymphatic Comment: none - Allergic/Immunologic Allergic/Immunologic: Reports seasonal allergies Past Medical History Past Medical History: No Reported History History of Any Multi-Drug Resistant Organisms: None Reported Past Surgical History: Appendectomy, Breast Surgery Additional Past Surgical History / Comment(s): breast reduction, breast augmentation. Repair of fractured nose as child Past Anesthesia/Blood Transfusion Reactions: No Reported Reaction Past Psychological History: No Psychological Hx Reported Smoking Status: Current every day smoker Past Alcohol Use History: Occasional Past Drug Use History: None Reported Medications and Allergies Home Medications Medication Instructions Recorded Confirmed Type No Known Home Medications 09/11/22 09/11/22 History Allergies Allergy/AdvReac Type Severity Reaction Status Date / Time No Known Allergies Allergy Verified 09/11/22 14:44 Objective - Constitutional General appearance: Present: cooperative - EENT Eyes: Present: EOMI ENT: Present: hearing grossly normal - Neck Neck: Present: normal ROM - Respiratory Respiratory: bilateral: CTA - Cardiovascular Rhythm: regular Heart sounds: normal: S1, S2 - Integumentary Integumentary: Present: normal turgor - Musculoskeletal Musculoskeletal: Present: gait normal - Psychiatric Psychiatric: Present: A&O x's 3, appropriate affect, intact judgment & insight - Additional findings Additional findings: Breast Exam: BRA: 36D Inspection: Bilateral grade 2 ptosis, well-healed scars from prior breast reduction surgery Right breast: Palpation: Multi positional exam no dominant masses or nodules of concern Right axilla: No adenopathy of concern Left breast: Multi positional exam no dominant masses or nodules of concern Left axilla: No adenopathy of concern Assessment and Plan Assessment: Impression: Patient's status post bilateral implant removal of the breast Lobular carcinoma in situ/atypical lobular hyperplasia left breast/patient opted not to have chemoprophylaxis she did talk with medical oncology Recent bilateral mammogram 12-20-2023 BI-RADS 3 patient is going to have a repeat left breast mammogram in 6 months with examination at that time Plan: Repeat left breast mammogram in 6 months with examination at that time Patient to follow-up sooner any questions or concerns CC: Dr. Lenny Lee
[2023-12-23 16:03] VITALS: BP 122/85; PULSE 94; RESP 16; TEMP 98.1
== END ==
LOC: WWCWWP 14:27
PROVIDERS: ATTEND Surgery
DX: Z12.31 Encounter for screening mammogram for malignant neoplasm of breast (principal); F17.200 Nicotine dependence, unspecified, uncomplicated; Z90.89 Acquired absence of other organs

== ENCOUNTER → 2024-06-26 | Outpatient (CLI) | payer OTHER ==
--- NOTE | 2024-06-26 13:22 | MM ---
Reason for Exam: Follow-up at short interval from prior study. Last screening mammogram was performed 6 month(s) ago. Patient History: Menarche at age 13. First Full-Term at age 19. Postmenopausal. Patient has history of breast feeding. Previous Atypical Lobular Hyperplasia at age 52. 12/15/2022, Lumpectomy on the Left side. 12/15/2022, High risk US breast localization LT on the left side. 01/23/2021, Benign Core Biopsy on the left side. 12/15/2022, Bilateral Implant Removal. 1995, Bilateral Implants. Risk Values: Essence 5 year model risk: 2.8%. NCI Lifetime model risk: 18.4%. Prior Study Comparison: 09/17/2022 Left MG 3D diag mammo imp w/cad LT, [facility]. 12/15/2022 Left MG diagnostic mammo LT wo CAD., [facility]. 12/20/2023 Bilateral MG 3D diag mammo w/cad [facility], [facility]. Tissue Density: Left: The breasts are heterogeneously dense, which may obscure small masses. Findings: Analyzed By CAD. Scattered benign-appearing stable calcifications are again present without significant change. Postoperative distortion is stable. No masses seen at this time. Overall Assessment: Benign, BI-RAD 2 Management: Screening Mammogram of both breasts in 6 months. . Results were given to the patient verbally at the time of exam. Patient should continue monthly self-breast exams. A clinical breast exam by your physician is recommended on an annual basis. This exam should not preclude additional follow-up of suspicious palpable abnormalities. Note on Essence scores and lifetime risk: 1. A Essence score greater than 3% is considered moderate risk. If this is the case, consider specialist referral to assess eligibility for a risk reducing agent. 2. If overall lifetime risk for the development of breast cancer is 20% or higher, the patient may qualify for future screening with alternating mammogram and breast MRI. [facility], , 06/26/2024 1:14 PM. Electronically signed and approved by: Danish Calvert M.D. Radiologis
== END | disposition home or self-care (01) ==
LOC: RADMAMWWP 12:50
PROVIDERS: ATTEND Surgery
DX: R92.8 Other abnormal and inconclusive findings on diagnostic imaging of breast (principal); Z78.0 Asymptomatic menopausal state; R92.332 Mammographic heterogeneous density, left breast
CPT/HCPCS: 77065; G0279; 77061

== ENCOUNTER → 2024-06-29 | Outpatient (CLI) | payer OTHER ==
[2024-06-29 13:03] VITALS: BP 124/87; PULSE 101; RESP 17; TEMP 98.3
--- NOTE | 2024-06-29 13:09 | P.PN ---
Subjective Progress Note Date: 06/29/24 06-29-24 Principal diagnosis: LCIS Subjective Progress Note Date: 12-23-23 Principal diagnosis: Discordant mass left breast/bilateral breast implants deflated/removed and biopsied discordant lesion left breast /atypical lobular hyperplasia/LCIS left breast, bilateral implant removal 12-15-22 Adele is a 53-year-old female seen in consultation for Dr. Lee in 2022 who underwent a bilateral mammogram on . This revealed heterogeneously dense breast tissue. Was personally reviewed and additionally it was noted that she had implants in place which appeared to be deflated. She then had an ultra sound of the left breast which revealed a 1.1 x 0.8 cm hypoechoic lesion at the 11 o'clock position with spiculated margins. A biopsy clip was in place. It was felt that the biopsy results were discordant as this was a suspicious lesion in that needle localization and excision should be performed. She had bilateral breast reduction followed by breast implant placement. The implants were placed approximately 30 years ago. They are saline implants. They were textured implants. The patient had repeat left breast mammogram and ultrasound on 2922. The area of concern which has been biopsied was felt to be discordant. The patient during her prior visit expressed a concern that her implants may have been recalled and that she had contacted an research attorney's office. I had called in my slot supervisor Jaja Stephens to hear the patient's concerns. We discussed with her that we would treat her medically per our existing practice. The implants will be sent to pathology, not available from the operating room for her to take home. She expressed understanding of this and wish for us to proceed with her medical care. On the date that she was scheduled for surgical resection she came late to the hospital. Her procedure was therefore canceled. At that point I strongly encouraged her to see a plastic surgeon which she did. Therefore the case will be needle localization of the discordant lesion in the left breast to be resected and the implants to be resected by plastic surgery. The patient's surgery was on 12-15-22. Her pathology did reveal atypical lobular hyperplasia/LCIS of the left breast. The patient was seen by DR. Jesus Silva regarding chemoprophylaxis and chose to not use the tamoxifen at this time Bilateral mammogram 12-20-2023 benign BI-RADS 3 repeat left breast mammogram in 6 months secondary to some faint calcifications laterally on the left breast Note Dr. Jesus Mendiola reviewed from 02-22-2023, since that time the patient has opted not to use tamoxifen At this time the patient is not complaining of any new lumps masses or nodules of concern in either breast 06-29-24 Patient comes in for results of left breast mammogram on 06-26-24. This was BIRAD 2. This was personally reviewed. She is happy that her implants are removed. She is not complaining of any new lumps masses or nodules in either breast. Recently was bite on her 4th finger by a pit bull she did not go to the ER Caffiene: 1 cup every other day nicotine: several times a week chocolate: occasional BCP: none Hormonal History: menarche: 15 , breast fed: yes, age at : 19 periomenopausal at this time, LMP 1 month ago hormones: none Family History: brother: skin cancer ? type Surgical history: Bilateral breast reduction followed by breast implant placement appy bilateral implant removal/left breast biopsy Medical History: none Social History: nicotine: Several times a week Alcohol: weekends, 5 drinks; wine or vodka drugs: none - Constitutional Constitutional: Reports sweats - EENT Eyes: left blurred vision (light flashing in her left eye), denies pain Ears: deny: decreased hearing, tinnitus Ears, nose, mouth and throat: Reports headache - Breasts Breasts: bilateral: as per HPI - Cardiovascular Cardiovascular: Denies chest pain, Denies shortness of breath - Respiratory Respiratory: Denies cough - Gastrointestinal Gastrointestinal: Reports constipation, Denies abdominal pain, Denies diarrhea, Denies nausea, Denies vomiting - Genitourinary (Female) Genitourinary: Denies dysuria, Denies hematuria - Menstruation Menstruation: Reports cycle variable - Musculoskeletal Musculoskeletal: Denies myalgias - Integumentary Integumentary: Denies pruritus, Denies rash - Neurological Neurological: Denies numbness, Denies weakness - Psychiatric Psychiatric: Reports depression, Denies anxiety - Endocrine Endocrine: Denies fatigue, Denies weight change - Hematologic/Lymphatic Comment: none - Allergic/Immunologic Allergic/Immunologic: Reports seasonal allergies Past Medical History Past Medical History: No Reported History History of Any Multi-Drug Resistant Organisms: None Reported Past Surgical History: Appendectomy, Breast Surgery Additional Past Surgical History / Comment(s): breast reduction, breast augmentation. Repair of fractured nose as child Past Anesthesia/Blood Transfusion Reactions: No Reported Reaction Past Psychological History: No Psychological Hx Reported Smoking Status: Current every day smoker Past Alcohol Use History: Occasional Past Drug Use History: None Reported Medications and Allergies Home Medications Medication Instructions Recorded Confirmed Type No Known Home Medications 09/11/22 09/11/22 History Allergies Allergy/AdvReac Type Severity Reaction Status Date / Time No Known Allergies Allergy Verified 09/11/22 14:44 Objective - Constitutional General appearance: Present: cooperative - EENT Eyes: Present: EOMI ENT: Present: hearing grossly normal - Neck Neck: Present: normal ROM - Respiratory Respiratory: bilateral: CTA - Cardiovascular Rhythm: regular Heart sounds: normal: S1, S2 - Integumentary Integumentary: Present: normal turgor - Musculoskeletal Musculoskeletal: Present: gait normal - Psychiatric Psychiatric: Present: A&O x's 3, appropriate affect, intact judgment & insight - Additional findings Additional findings: Breast Exam: BRA: 36D Inspection: Bilateral grade 2 ptosis, well-healed scars from prior breast reduction surgery Right breast: Palpation: Multi positional exam no dominant masses or nodules of concern Right axilla: No adenopathy of concern Left breast: Multi positional exam no dominant masses or nodules of concern Left axilla: No adenopathy of concern Assessment and Plan Assessment: Impression: Patient's status post bilateral implant removal of the breast Lobular carcinoma in situ/atypical lobular hyperplasia left breast/patient opted not to have chemoprophylaxis she did talk with medical oncology Recent bilateral mammogram 12-20-2023 BI-RADS 3 patient is going to have a repeat left breast mammogram in 6 months with examination at that time left breast mammogram on 06-26-24 BIRAD 2 personally reviewed and interpreted Plan: bilateral mammogram in 6 months; December 2024 Patient to follow-up sooner any questions or concerns CC: Dr. Lenny Lee
== END ==
LOC: WWCWWP 12:46
PROVIDERS: ATTEND Surgery
DX: R92.8 Other abnormal and inconclusive findings on diagnostic imaging of breast (principal); D05.02 Lobular carcinoma in situ of left breast; N60.92 Unspecified benign mammary dysplasia of left breast; F17.200 Nicotine dependence, unspecified, uncomplicated; Z98.890 Other specified postprocedural states

== ENCOUNTER → 2024-12-25 | Outpatient (CLI) | payer OTHER ==
--- NOTE | 2024-12-25 11:28 | CT ---
EXAMINATION TYPE: CT brain wo con DATE OF EXAM: 12/25/2024 COMPARISON: NONE CLINICAL INDICATION: Female, 54 years old with history of R51.9 HEADACHE, UNSPECIFIED, Headaches, diz ziness, and blurred vision. TECHNIQUE: CT scan of the head is performed without contrast. CT DLP: 1108.4 mGycm. Automated Exposure Control for Dose Reduction was Utilized. FINDINGS: There is no acute intracranial hemorrhage or midline shift identified. There is mild diff use ventricular and sulcal prominence consistent with diffuse age-related cerebral atrophy. There is mild low-attenuation in the periventricular white matter consistent with chronic small vessel ischem ic change. The globes are intact and the visualized sinuses are clear. No suspicious opacification of the mastoid air cells. IMPRESSION: No acute intracranial hemorrhage or midline shift. [facility], , 12/25/2024 11:26 AM
== END | disposition home or self-care (01) ==
LOC: RADCTMAIN 11:11
PROVIDERS: ATTEND Family Medicine
DX: R51.9 Headache, unspecified (principal)
CPT/HCPCS: 70450

== ENCOUNTER → 2024-12-25 | Outpatient (CLI) | payer OTHER ==
--- NOTE | 2024-12-25 11:32 | MM ---
Reason for Exam: Screening (asymptomatic). Last screening mammogram was performed 12 month(s) ago. Patient History: Menarche at age 13. First Full-Term at age 19. Postmenopausal. Patient has history of breast feeding. Previous Atypical Lobular Hyperplasia at age 52. Patient used Hormonal Contraceptives for 4 years. 12/15/2022, Lumpectomy on the Left side. 12/15/2022, High risk US breast localization LT on the left side. 01/23/2021, Benign Core Biopsy on the left side. 12/15/2022, Bilateral Implant Removal. 1995, Bilateral Implants. Risk Values: Essence 5 year model risk: 2.8%. NCI Lifetime model risk: 18.4%. Prior Study Comparison: 12/15/2022 Left MG diagnostic mammo LT wo CAD., [facility]. 12/20/2023 Bilateral MG 3D diag mammo w/cad [facility], [facility]. 06/26/2024 Left MG 3D diag mammo w/cad LT, [facility]. Tissue Density: The breasts are heterogeneously dense, which may obscure small masses. Findings: Analyzed By CAD. Right breast: Stable fibroglandular tissue. There is no suspicious group of microcalcifications or new suspicious mass. Left breast: Stable fibroglandular tissue. There is no suspicious group of microcalcifications or new suspicious mass. Overall Assessment: Negative, BI-RAD 1 Management: Screening Mammogram of both breasts in [address] [facility] will attempt to contact patient to return for supplemental views and ultrasound if indicated. Patient should continue monthly self-breast exams. A clinical breast exam by your physician is recommended on an annual basis. This exam should not preclude additional follow-up of suspicious palpable abnormalities. Note on Essence scores and lifetime risk: 1. A Essence score greater than 3% is considered moderate risk. If this is the case, consider specialist referral to assess eligibility for a risk reducing agent. 2. If overall lifetime risk for the development of breast cancer is 20% or higher, the patient may qualify for future screening with alternating mammogram and breast MRI. [facility], , 12/25/2024 11:28 AM. Electronically signed and approved by: Margarito Berg DO
== END | disposition home or self-care (01) ==
LOC: RADMAMWWP 10:49
PROVIDERS: ATTEND Surgery
DX: Z12.31 Encounter for screening mammogram for malignant neoplasm of breast (principal); R92.333 Mammographic heterogeneous density, bilateral breasts; Z78.0 Asymptomatic menopausal state; Z92.0 Personal history of contraception; Z98.82 Breast implant status
CPT/HCPCS: 77063; 77067